=== PATIENT | male | born 1955 | race Caucasian/White ===

== ENCOUNTER 2018-03-16 10:51 | Outpatient (REF) | payer MEDICARE, SELFPAY ==
[2018-03-16 22:51] LABS: Anion Gap 9.2 mmol/L (3-11); BUN 14 mg/dL (7-18); CO2 26.8 mmol/L (21.0-32.0); CREATININE 0.91 mg/dL (0.70-1.30); Calcium 8.9 mg/dL (8.5-10.1); Chloride 104 mmol/L (98-107); Glucose 116 mg/dL (70-100); Potassium 4.4 mmol/L (3.5-5.1); Sodium 140 mmol/L (136-145)
== END 2018-03-16 10:52 ==
LOC: NCHCN 10:51
PROVIDERS: PCP Internal Medicine; Visit Provider Internal Medicine
DX: I10 Essential (primary) hypertension (principal)
CPT/HCPCS: 80048

== ENCOUNTER 2018-10-24 10:02 | Outpatient (REF) | payer MEDICARE, SELFPAY ==
[2018-10-24 21:34] LABS: Cholesterol 165 mg/dL (50-200); HDL Cholesterol 39 mg/dL (40-60); LDL CHOLESTEROL 111 mg/dL (<100); Triglyceride 100 mg/dL (30-150)
[2018-10-24 21:40] LABS: Hemoglobin A1C 6.3 % (4.5-6.2)
== END 2018-10-24 10:22 ==
LOC: NCHCN 10:02
PROVIDERS: PCP Internal Medicine; Visit Provider Internal Medicine
DX: I10 Essential (primary) hypertension (principal); E74.39 Other disorders of intestinal carbohydrate absorption; R73.09 Other abnormal glucose
CPT/HCPCS: 80061; 83721; 83036

== ENCOUNTER 2019-04-17 15:21 | Outpatient (REF) | payer MEDICARE, BC, SELFPAY ==
[2019-04-17 20:45] LABS: Hemoglobin A1C 6.3 % (4.5-6.2)
[2019-04-17 20:48] LABS: Calculated LDL 44 mg/dL; Cholesterol 111 mg/dL (50-200); HDL Cholesterol 51 mg/dL (40-60); Triglyceride 82 mg/dL (30-150)
== END 2019-04-17 15:41 ==
LOC: NCHCN 15:21
PROVIDERS: PCP Internal Medicine; Visit Provider Internal Medicine
DX: E74.39 Other disorders of intestinal carbohydrate absorption (principal)
CPT/HCPCS: 80061; 83036

== ENCOUNTER 2020-04-22 21:33 | Outpatient (REF) | payer MEDICARE, BC, SELFPAY ==
[2020-04-22 22:10] LABS: Anion Gap 8.1 mmol/L (3-11); BUN 13 mg/dL (7-18); CO2 28.9 mmol/L (21.0-32.0); CREATININE 0.82 mg/dL (0.70-1.30); Calcium 9.2 mg/dL (8.5-10.1); Chloride 104 mmol/L (98-107); Glucose 82 mg/dL (74-106); Potassium 4.3 mmol/L (3.5-5.1); Sodium 141 mmol/L (136-145)
[2020-04-23 17:39] LABS: PSA, Screening 0.2 ng/mL (0.0-4.5)
== END 2020-04-22 21:53 ==
LOC: NCHCN 21:33
PROVIDERS: PCP Internal Medicine; Visit Provider Internal Medicine
DX: I10 Essential (primary) hypertension (principal); Z12.5 Encounter for screening for malignant neoplasm of prostate
CPT/HCPCS: 80048; 84153

== ENCOUNTER 2021-04-16 15:57 | Outpatient (REF) | payer MEDICARE, BC, SELFPAY ==
[2021-04-16 22:27] LABS: Hemoglobin A1C 6.6 % (<5.7)
[2021-04-16 22:29] LABS: ALT 43 U/L (16-63); AST 28 U/L (15-37); Albumin 4.4 g/dL (3.4-5.0); Alkaline Phosphatase 103 U/L (46-116); Anion Gap 7.7 mmol/L (3-11); BUN 15 mg/dL (7-18); Bilirubin, Total 0.6 mg/dL (0.2-1.0); CO2 29.3 mmol/L (21.0-32.0); Calcium 8.8 mg/dL (8.5-10.1); Calculated LDL 57 mg/dL (<100); Chloride 104 mmol/L (98-107); Cholesterol 121 mg/dL (<200); Glucose 93 mg/dL (74-106); HDL Cholesterol 51 mg/dL (40-60); Sodium 141 mmol/L (136-145); Total Protein 7.3 g/dL (6.4-8.2); Triglyceride 67 mg/dL (<150)
== END 2021-04-16 15:58 | disposition home or self-care (01) ==
LOC: NCHCN 15:57
PROVIDERS: PCP Internal Medicine; Referring Provider Internal Medicine; Visit Provider Internal Medicine
DX: I10 Essential (primary) hypertension (principal); E78.5 Hyperlipidemia, unspecified; R73.03 Prediabetes; Z00.00 Encounter for general adult medical examination without abnormal findings
CPT/HCPCS: 80053; 80061; 83036

== ENCOUNTER 2021-07-15 18:38 | Outpatient (REF) | payer MEDICARE, BC, SELFPAY ==
[2021-07-15 22:52] LABS: ALT 36 U/L (16-63); AST 31 U/L (15-37); Albumin 4.3 g/dL (3.4-5.0); Alkaline Phosphatase 90 U/L (46-116); Bilirubin, Direct 0.1 mg/dL (0.0-0.2); Bilirubin, Total 0.4 mg/dL (0.2-1.0); Total Protein 6.9 g/dL (6.4-8.2)
[2021-07-17 21:42] LABS: Hemoglobin A1C 5.8 % (<5.7)
== END 2021-07-15 18:39 | disposition home or self-care (01) ==
LOC: NCHCN 18:38
PROVIDERS: PCP Internal Medicine; Visit Provider Internal Medicine
DX: E11.9 Type 2 diabetes mellitus without complications (principal); Z51.81 Encounter for therapeutic drug level monitoring
CPT/HCPCS: 80076; 83036

== ENCOUNTER 2021-11-12 18:34 | Outpatient (REF) | payer MEDICARE, BC, SELFPAY ==
[2021-11-12 21:51] LABS: ALT 40 U/L (16-63); AST 28 U/L (15-37); Albumin 4.2 g/dL (3.4-5.0); Alkaline Phosphatase 104 U/L (46-116); Bilirubin, Direct 0.1 mg/dL (0.0-0.2); Bilirubin, Total 0.5 mg/dL (0.2-1.0); Total Protein 6.8 g/dL (6.4-8.2)
== END 2021-11-12 18:35 | disposition home or self-care (01) ==
LOC: NCHCN 18:34
PROVIDERS: PCP Internal Medicine; Visit Provider Registered Nurse
DX: E11.9 Type 2 diabetes mellitus without complications (principal); I10 Essential (primary) hypertension; Z51.81 Encounter for therapeutic drug level monitoring
CPT/HCPCS: 80076

== ENCOUNTER 2022-06-29 17:44 | Outpatient (REF) | payer MEDICARE, BC, SELFPAY ==
[2022-06-29 22:30] LABS: Anion Gap 8.8 mmol/L (3-11); BUN 15 mg/dL (7-18); CO2 28.2 mmol/L (21.0-32.0); CREATININE 0.9 mg/dL (0.70-1.30); Calcium 9.2 mg/dL (8.5-10.1); Chloride 102 mmol/L (98-107); Estimated GFR 92.45 (mL/min/1.73m2); Glucose 89 mg/dL (74-106); Potassium 4.2 mmol/L (3.5-5.1); Sodium 139 mmol/L (136-145)
== END 2022-06-29 17:45 | disposition home or self-care (01) ==
LOC: NCHCN 17:44
PROVIDERS: PCP Internal Medicine; Visit Provider Internal Medicine
DX: I10 Essential (primary) hypertension (principal)
CPT/HCPCS: 80048

== ENCOUNTER 2023-07-08 17:35 | Outpatient (REF) | payer MEDICARE, BC, SELFPAY ==
--- OUTSIDE RECORDS SUMMARY | 2023-07-08 17:37 | XMS_ITS | CCD ---
Author Name Unknown Address [address] [place] [address] [phone] Organization Unknown Address [address] [place] [address] [phone] Care Team Providers Care Co Founder Name Role Phone ESTEBAN HARRIS MD Attending Physician [phone] Vital Signs Unknown or Not Available. Allergies Allergy Code Allergy Type Reaction Status No Known Drug Allergies 0 No known drug allergies Active Procedures Unknown or Not Available. History of Immunizations Unknown or Not Available. Problems Unknown or Not Available. Results Unknown or Not Available. Active Medications Unknown or Not Available. Medications Administered During Visit Unknown or Not Available. Encounters Encounter Diagnosis Diagnosis Code Start Date Bursitis of olecranon of left elbow [id number] 101 02/27/2021 Social History Smoking Status Code Start Date End Date Former smoker [id number] Patient Decision Aids Unknown or Not Available. Discharge Instructions You were admitted to [facility] on 02/27/2021 15:28 with a principal diagnosis of Olecranon bursitis, left elbow You were discharged from [facility] on 02/27/2021 15:29 Should you have any questions prior to discharge, please contact a member of your healthcare team. If you have left the hospital and have any questions, please contact your primary care physician. Chief Complaint and Reason For Visit Unknown or Not Available. Function Status Unknown or Not Available. Plan of Care Unknown or Not Available. Referral/Transition of Care Unknown or Not Available.
--- OUTSIDE RECORDS SUMMARY | 2023-07-08 17:37 | XMS_ITS | CCD ---
Author Name Unknown Address [address] [place] [address] [phone] Organization Unknown Address [address] [place] [address] [phone] Care Team Providers Care Analyst [employer] Name Role Phone CORA MAJOR, RAMO BARROSO Attending Physician [phone] STACY AVILES Er Physician [phone] Vital Signs Unknown or Not Available. Allergies [...] Encounters Encounter Diagnosis Diagnosis Code Start Date Urticaria, unspecified L509 Social History Smoking Status Code Start Date End Date Former smoker [id number] Patient Decision Aids Unknown or Not Available. Discharge Instructions You were admitted to [facility] on 02/05/2021 20:17 with a principal diagnosis of Urticaria, unspecified You were discharged from [facility] on 02/05/2021 21:51 Should you have any questions prior to discharge, please contact a member of your healthcare team. If you have left the hospital and have any questions, please contact your primary care physician. Chief Complaint and Reason For Visit Chief Complaint Date of Onset RASH Function Status Unknown or Not Available. Plan of Care Unknown or Not Available. Referral/Transition of Care Unknown or Not Available.
--- OUTSIDE RECORDS SUMMARY | 2023-07-08 17:38 | XMS_ITS | CCD ---
Author Name Unknown Address [address] [place] [address] [phone] Organization Unknown Address [address] [place] [address] [phone] Care Team Providers Care Central Office Equipment Installer Name Role Phone ESTEBAN HARRIS MD Attending Physician [phone] Vital Signs Unknown or Not Available. Allergies Allergy Code Allergy Type Reaction Status No Known Drug Allergies 0 No known drug allergies Active Procedures Procedure Code Procedure Type Date Arthrocentesis Aspir&/[place]t/[place] [address] CPT 01/30/2021 History of Immunizations Unknown or Not Available. Problems Unknown or Not Available. Results GRAM STAIN - Collect Date/Ti me: 01/30/2021 16:05 Test Name Code Test Result Test Units Test Ref Rang e SOURCE- Other N/A WBC s few N/A PREDOMINANT ORGANISM No bacteria seen N/A Active Medications Unknown or Not Available. Medications Administered During Visit Unknown or Not Available. Encounters Encounter Diagnosis Diagnosis Code Start Date Olecranon bursitis, left elbow M7022 0 01/30/2021 Social History Smoking Status Code Start Date End Date Former smoker [id number] Patient Decision Aids Unknown or Not Available. Discharge Instructions You were admitted to [facility] on 01/30/2021 13:43 with a principal diagnosis of Olecranon bursitis, left elbow You had the following procedures done:Arthrocentesis Aspir&/Inj Interm Jt/Burs w/o US You had the following tests done:GRAM STAIN You were discharged from [facility] on 01/30/2021 13:44 Should you have any questions prior to [...]
[2023-07-08 21:15] LABS: ALT 39 U/L (16-63); AST 28 U/L (15-37); Albumin 4.5 g/dL (3.4-5.0); Alkaline Phosphatase 92 U/L (46-116); Anion Gap 7.7 mmol/L (3-11); BUN 16 mg/dL (7-18); CO2 30.3 mmol/L (21.0-32.0); CREATININE 0.8 mg/dL (0.70-1.30); Calcium 9.1 mg/dL (8.5-10.1); Chloride 103 mmol/L (98-107); Estimated GFR 95.21 (mL/min/1.73m2); Glucose 98 mg/dL (74-106); Potassium 4.2 mmol/L (3.5-5.1); Sodium 141 mmol/L (136-145); Total Protein 7.5 g/dL (6.4-8.2)
[2023-07-08 21:16] LABS: Hemoglobin A1C 6.1 % (<5.7)
[2023-07-09 21:25] LABS: PSA, Diagnostic 0.3 ng/mL (<=6.5)
== END 2023-07-08 17:36 | disposition home or self-care (01) ==
LOC: NCHCN 17:35
PROVIDERS: PCP Internal Medicine; Visit Provider Internal Medicine
DX: R73.03 Prediabetes (principal); I10 Essential (primary) hypertension
CPT/HCPCS: 80053; 83036; 84153

== ENCOUNTER 2024-07-12 15:53 | Outpatient (REF) | payer MEDICARE, BC, SELFPAY ==
[2024-07-12 21:19] LABS: Hemoglobin A1C 6.7 % (<5.7)
[2024-07-12 21:21] LABS: Anion Gap 8.7 mmol/L (3-11); BUN 17 mg/dL (7-18); CO2 28.3 mmol/L (21.0-32.0); CREATININE 0.9 mg/dL (0.70-1.30); Calcium 9.2 mg/dL (8.5-10.1); Calculated LDL 47 mg/dL (<100); Chloride 107 mmol/L (98-107); Cholesterol 135 mg/dL (<200); Estimated GFR 91.31 (mL/min/1.73m2); Glucose 159 mg/dL (74-106); HDL Cholesterol 63 mg/dL (40-60); Potassium 4.2 mmol/L (3.5-5.1); Sodium 144 mmol/L (136-145); Triglyceride 127 mg/dL (<150)
== END 2024-07-12 15:54 | disposition home or self-care (01) ==
LOC: NCHCN 15:53
PROVIDERS: PCP Internal Medicine; Visit Provider Internal Medicine
DX: I10 Essential (primary) hypertension (principal); R73.03 Prediabetes
CPT/HCPCS: 80048; 80061; 83036

== ENCOUNTER 2025-01-04 16:21 | Outpatient (REF) | payer MEDICARE, SELFPAY ==
[2025-01-05 15:21] LABS: COMMENT (LAB VIEW ONLY) 66.81 mg/dL; Microalb ug/mg Crea 5.4 ug/mg Cr
== END 2025-01-04 16:22 | disposition home or self-care (01) ==
LOC: NCHCN 16:21
PROVIDERS: PCP Internal Medicine; Visit Provider Internal Medicine
DX: E11.9 Type 2 diabetes mellitus without complications (principal)
CPT/HCPCS: 82043; 82570